=== PATIENT | female | born 1955 | race Caucasian/White ===

== ENCOUNTER 2021-04-27 10:17 | Emergency (ER) | payer OTHER ==
[~2021-04-27] VITALS: Ht 167.6 cm; Wt 89.8 kg
[~2021-04-27 10:17] MED LIST: ACIDOPHILUS1 EAC3 PO; CIPRO500 MG PO; ENBREL50 MG/M1; FLAGYL500MG PO; PROTONIX40 MG PO; TESSALON200 MG PO; TUSSI PRES-B L120 M1 PO; ULTRACET PO; VASOTEC2.5 MG; ZITHROMAX TRI-500 MG PO
== END 2021-04-27 14:54 | disposition home or self-care (01) ==
LOC: ER 10:17
DX: R42 Dizziness and giddiness (principal)

== ENCOUNTER 2021-05-19 09:29 | Emergency (ER) | payer OTHER ==
[~2021-05-19] VITALS: Ht 167.6 cm; Wt 89.8 kg
[2021-05-19] MEDS ORDERED: ENBREL50 MG/1 M1 (09:40)
[2021-05-19] MEDS ORDERED: ATORVASTATIN CA20 MG (09:42)
[2021-05-19] MEDS ORDERED: NEURONTIN300 MG (09:42)
[2021-05-19] MEDS ORDERED: METHOTREXA25 MG/1 M5 (09:42)
== END 2021-05-19 15:03 | disposition home or self-care (01) ==
LOC: ER 09:29
DX: N39.0 Urinary tract infection, site not specified (principal); K80.80 Other cholelithiasis without obstruction; R10.31 Right lower quadrant pain; Z03.818 Encounter for observation for suspected exposure to other biological agents ruled out

== ENCOUNTER 2022-01-11 08:34 | Outpatient (CLI) | payer OTHER ==
[~2022-01-11 08:34] MED LIST changes: +ATORVASTATIN CA20 MG; +ENBREL50 MG/1 M1; +METHOTREXA25 MG/1 M5; +NEURONTIN300 MG
[2022-01-29] MEDS ORDERED: RAYOS5 MG PO (08:38)
[2022-01-29] MEDS ORDERED: GLIPIZIDE XL10 MG PO (08:38)
[2022-01-29] MEDS ORDERED: ALENDRONATE SOD70 MG PO (08:39)
== END 2022-01-11 08:36 | disposition home or self-care (01) ==
LOC: NUCLEAR 08:34
PROVIDERS: ATTEND Specialist
DX: K80.10 Calculus of gallbladder with chronic cholecystitis without obstruction (principal); Z91.02 Food additives allergy status
CPT/HCPCS: 78227; A9537; J2805

== ENCOUNTER 2022-02-01 04:33 | Day surgery (SDC) | payer OTHER ==
[~2022-02-01] VITALS: Ht 167.6 cm; Wt 88.5 kg
[~2022-02-01 04:33] MED LIST changes: +ALENDRONATE SOD70 MG PO; +GLIPIZIDE XL10 MG PO; +RAYOS5 MG PO
== END 2022-02-01 11:50 | disposition home or self-care (01) ==
LOC: CIR.AMB 04:33
PROVIDERS: ATTEND Specialist
DX: K80.10 Calculus of gallbladder with chronic cholecystitis without obstruction (principal); Z20.822 Contact with and (suspected) exposure to COVID-19; Z91.018 Allergy to other foods; L40.59 Other psoriatic arthropathy

== ENCOUNTER 2023-08-21 08:04 | Emergency (ER) | payer OTHER ==
[~2023-08-21] VITALS: Ht 167.6 cm; Wt 90.7 kg
[2023-08-21 09:32] LABS: HEMATOCRIT 35.5 % (36.0-45.00); HEMOGLOBIN 11.8 g/dL (12.0-15.00); MEAN CELL VOLUME 90.6 fL (80.00-100.00); MEAN CORPUSCULAR HEMOGLOBIN 30.1 pg (27.00-32.0); MEAN CORPUSCULAR HGB CONC 33.2 g/dl (32.0-36.0); PLATELET COUNT 182 K/uL (150-450); RED BLOOD COUNT 3.92 M/uL (4.00-6.00); RED CELL DISTRIBUTION WIDTH 13.8 % (11.5-14.5)
[2023-08-21] MEDS ORDERED: ZITHROMAX500 MG PO (10:24)
[2023-08-21] MEDS ORDERED: TUSNEL LIQUID178 ML PO (10:24)
== END 2023-08-21 10:45 | disposition home or self-care (01) ==
LOC: ER 08:04
PROVIDERS: General Practice
DX: J06.9 Acute upper respiratory infection, unspecified (principal); Z91.018 Allergy to other foods; Z20.822 Contact with and (suspected) exposure to COVID-19
CPT/HCPCS: 36415; 96372; 99284; J1885

== ENCOUNTER 2024-03-21 05:43 | Emergency (ER) | payer OTHER ==
[~2024-03-21] VITALS: Ht 167.6 cm; Wt 95.3 kg
[~2024-03-21 05:43] MED LIST changes: +TUSNEL LIQUID178 ML PO; +ZITHROMAX500 MG PO
[2024-03-21] MEDS ORDERED: FOLIC ACID20 MG (05:54)
[2024-03-21] MEDS ORDERED: ACETAMINOPHEN 500 MG GEL..CAP PO ONE (08:45)
[2024-03-21 09:56] LABS: HEMATOCRIT 36.8 % (36.0-45.00); HEMOGLOBIN 12.3 g/dL (12.0-15.00); MEAN CELL VOLUME 90.6 fL (80.00-100.00); MEAN CORPUSCULAR HEMOGLOBIN 30.3 pg (27.00-32.0); MEAN CORPUSCULAR HGB CONC 33.4 g/dl (32.0-36.0); PLATELET COUNT 230 K/uL (150-450); RED BLOOD COUNT 4.06 M/uL (4.00-6.00); RED CELL DISTRIBUTION WIDTH 13.9 % (11.5-14.5)
[2024-03-21 10:15] LABS: ALBUMIN 3.7 gm/dL (3.4-5.0); BILIRUBIN TOTAL 0.56 mg/dL (0.3-1.2); CALCIUM 9.9 mg/dL (8.5-10.1); CREATININE SERUM 0.89 mg/dL (0.55-1.02); GFR 62.7; GLOBULINA 4.7 G/DL (2.4-3.5); POTASSIUM 4.49 mEq/L (3.5-5.1); TOTAL PROTEIN 8.4 gm/dL (6.4-8.2)
[2024-03-21 10:35] LABS: URINE APPEARANCE Clear; URINE BILIRRUBIN Negative (NEGATIVE); URINE BLOOD Negative; URINE COLOR Yellow; URINE GLUCOSE Negative (NEGATIVE); URINE LEUKOCYTE Negative; URINE NITRATE Negative; URINE PROTEIN Negative (NEGATIVE); URINE UROBILINOGEN 0.2 E.U./dl
[2024-03-21 10:38] LABS: URINE BACTERIA 2051.1 uL (0.0-1933); URINE EPITHELIAL CELLS 11.5 uL (0.0-38.8); URINE RBC 7.9 uL (0.0-20.8); URINE WBC 11.8 uL (0.0-23.2)
[2024-03-21] MEDS ORDERED: KETOROLAC TROMETHAMINE 30 MG VIAL IM ONE (11:30)
[2024-03-21] MEDS ORDERED: ORPHENADRINE CITRATE 30 MG/ML AMPUL IM ONE (11:30)
== END 2024-03-21 11:46 | disposition home or self-care (01) ==
LOC: ER 05:44
PROVIDERS: General Practice
DX: R53.81 Other malaise (principal); Z20.822 Contact with and (suspected) exposure to COVID-19; Z91.018 Allergy to other foods